=== PATIENT | female | born 1965 | race Caucasian/White ===

== ENCOUNTER 2017-02-07 18:03 | Emergency (ER) | payer OTHER ==
[~2017-02-07] VITALS: Ht 165.1 cm; Wt 59.5 kg
[~2017-02-07 18:03] MED LIST: ESZO2TAB22 PO; HYDR-3240 PO
[2017-02-07] MEDS ORDERED: MORPHINE SULFATE 4 MG/ML, 1ML IVPush PRN (19:00)
[2017-02-07] MEDS ORDERED: ONDANSETRON 2MG/ML, 2ML IVPush ONE (19:00)
[2017-02-07] MEDS ORDERED: SODIUM CHLORIDE 0.9% 1,000ML IV ONE (19:00)
[2017-02-07] MEDS ORDERED: SODIUM CHLORIDE FLUSH 10ML SYR IVF ONE (19:00)
[2017-02-07 19:27] LABS: HEMOGLOBIN 15.6 g/dL (11.7-16.4); WHITE BLOOD COUNT 5.5 x10^3/uL (3.4-10)
[2017-02-07 19:33] LABS: BLOOD UREA NITROGEN 16 mg/dL (7-18)
[2017-02-07] MEDS ORDERED: KETOROLAC 30 MG/1 ML IVPush ONE (20:00)
[2017-02-07] MEDS ORDERED: SODIUM CHLORIDE 0.9% 1,000ML IVBOLUS ONE (20:00)
[2017-02-07] MEDS ORDERED: DIPHENHYDRAMINE 50 MG/ML, 1ML IVPush ONE (20:00)
[2017-02-07] MEDS ORDERED: PROMETHAZINE 25 MG/ML, 1ML IM ONE (20:00)
[2017-02-07] MEDS ORDERED: KETOROLAC 30 MG/1 ML ONE (20:14)
[2017-02-07] MEDS ORDERED: PROMETHAZINE 25 MG/ML, 1ML ONE (20:14)
[2017-02-07] MEDS ORDERED: DIPHENHYDRAMINE 50 MG/ML, 1ML ONE (20:14)
[2017-02-07] MEDS ORDERED: LIDOCAINE 1%, 20ML ONE (20:50)
[2017-02-07 22:52] VITALS: BP 122/78
== END 2017-02-07 23:00 | disposition left against medical advice (07) ==
LOC: ED 22:54
DX: G44.039 Episodic paroxysmal hemicrania, not intractable (principal)
CPT/HCPCS: 36415; 62270; 70450; 80048; 81003; 82040; 85025; 96361; 96372; 96374; 96375; 99285; J1200; J1885; J2550; J7030

== ENCOUNTER 2017-04-29 13:25 | Emergency (ER) | payer BC, OTHER ==
[~2017-04-29] VITALS: Ht 165.1 cm; Wt 62.8 kg
[2017-04-29 13:35] VITALS: BP 121/83
[2017-04-29] MEDS ORDERED: DIAZEPAM 10 MG TABLET PO ONE (14:00)
[2017-04-29] MEDS ORDERED: KETOROLAC 30 MG/1 ML IM ONE (14:00)
[2017-04-29] MEDS ORDERED: HYDROcodone/APAP 5/325 TABLET PO PRN (14:00)
[2017-04-29] MEDS ORDERED: HYDROcodone/APAP 5/325 TABLET ONE (14:29)
[2017-04-29] MEDS ORDERED: DIAZEPAM 5 MG TABLET ONE (14:29)
[2017-04-29] MEDS ORDERED: KETOROLAC 30 MG/1 ML ONE (14:30)
[2017-04-29] MEDS ORDERED: ONDANSETRON ODT 4 MG ONE (14:43)
[2017-04-29] MEDS ORDERED: ONDANSETRON ODT 4 MG PO ONE (15:00)
== END 2017-04-29 15:46 | disposition home or self-care (01) ==
LOC: ED 15:00
DX: M54.12 Radiculopathy, cervical region (principal); G89.29 Other chronic pain; Z98.890 Other specified postprocedural states
CPT/HCPCS: 72050; 73030; 73060; 96372; 99284; J1885; J7512; Q0162

== ENCOUNTER → 2017-07-16 | Outpatient (CLI) | payer BC | END | disposition home or self-care (01) | LOC: RAD 11:43 | PROVIDERS: ATTEND Neurological Surgery | DX: M41.84 Other forms of scoliosis, thoracic region (principal) | CPT/HCPCS: 72082 ==

== ENCOUNTER 2018-11-15 12:29 | Emergency (ER) | payer BC ==
[~2018-11-15] VITALS: Ht 165.1 cm; Wt 58.0 kg
[2018-11-15 13:37] LABS: BASOPHILS # (AUTO) 0.02 x10^3/uL (0-0.1); BASOPHILS % (AUTO) 0 % (0-1); EOSINOPHILS # (AUTO) 0.04 x10^3/uL (0-0.4); EOSINOPHILS % (AUTO) 1 % (1-7); LYMPHOCYTES % (AUTO) 24 % (22-44); MD NO; MEAN CORPUSCULAR HGB CONC 33.5 g/dL (32.4-35.8); MEAN CORPUSCULAR VOLUME 101.5 fL (80-100); MEAN PLATELET VOLUME 7.6 fL (7.4-10.4); MONOCYTES # (AUTO) 0.26 x10^3/uL (0.2-0.8); MONOCYTES % (AUTO) 6 % (2-9); NEUTROPHILS # (AUTO) 2.83 x10^3/uL (1.8-6.8); NEUTROPHILS % (AUTO) 68 % (42-75); PLATELET COUNT 272 x10^3/uL (130-400); RED BLOOD COUNT 4.18 x10^6/uL (3.82-5.3); RED CELL DISTRIBUTION WIDTH 12.7 % (9.6-15.2)
[2018-11-15 13:45] LABS: ANION GAP 5 mmol/L (5-15); CALCIUM 8.7 mg/dL (8.5-10.1); CHLORIDE 108 mmol/L (98-107)
[2018-11-15 13:48] LABS: D-DIMER 0.25 ug/mlFEU (0.00-0.52); INTERNATIONAL NORMALIZED RATIO 1.09 (0.93-1.1); PROTHROMBIN TIME 11.4 Seconds (9.6-11.5)
[2018-11-15 13:52] LABS: ALANINE AMINOTRANSFERASE 20 U/L (12-78); ALKALINE PHOSPHATASE 49 U/L (45-117); BILIRUBIN,TOTAL 1.5 mg/dL (0.2-1.0); CREATININE 1.03 mg/dL (0.55-1.02); TOTAL PROTEIN 7.1 g/dL (6.4-8.2); TROPONIN I < 0.015 ng/mL (0.000-0.045)
--- NOTE | 2018-11-15 13:56 | NUR ---
pt resting in [facility] with at bedside, awaiting lab and rad results
[2018-11-15] MEDS ORDERED: BENZONATATE 100 MG CAPSULE PO ONE (14:30)
[2018-11-15] MEDS ORDERED: BENZONATATE 100 MG CAPSULE ONE (14:38)
--- NOTE | 2018-11-15 14:51 | NUR ---
iv established and pt medicated per mar, awaiting ct scan
--- NOTE | 2018-11-15 15:13 | NUR ---
pt to CT
[2018-11-15] MEDS ORDERED: OMNIPAQUE 350 MG/ML, 75ML BOTTLE ONE (15:29)
[2018-11-15 16:06] VITALS: BP 119/63
== END 2018-11-15 16:31 | disposition home or self-care (01) ==
LOC: ED 15:50
DX: J20.8 Acute bronchitis due to other specified organisms (principal)
CPT/HCPCS: 36415; 71045; 71260; 80053; 83880; 84484; 85025; 85379; 85610; 85730; 93005; 99284; Q9967

== ENCOUNTER → 2019-12-11 | Outpatient (CLI) | payer BC | END | disposition home or self-care (01) | LOC: RAD 08:51 | PROVIDERS: ATTEND Internal Medicine Gastroenterology | DX: K25.7 Chronic gastric ulcer without hemorrhage or perforation (principal); R10.13 Epigastric pain; R11.0 Nausea | CPT/HCPCS: 76700; 78264; A9541 ==